=== PATIENT | male | born 1945 | race Caucasian/White ===

== ENCOUNTER 2021-04-19 19:28 | Emergency (ER) | payer MEDICARE, BC ==
[~2021-04-19] VITALS: Ht 180.3 cm; Wt 89.4 kg
[2021-04-19 19:28] VITALS: BP 143/87
--- NOTE | 2021-04-19 19:45 | NUR ---
URINE COLLECTED AND SENT TO LAB
[2021-04-19] MEDS ORDERED: TAMSULOSIN 0.4 MG CAP.SR.24H ONE (19:56)
[2021-04-19] MEDS ORDERED: TAMSULOSIN 0.4 MG CAP.SR.24H PO ONE (20:00)
[2021-04-19 20:03] LABS: BILIRUBIN,URINE Negative (NEGATIVE); COLOR,URINE YELLOW (YELLOW); LEUKOCYTE ESTERASE ,URINE Negative (NEGATIVE); NITRITE, URINE Negative (NEGATIVE); PH,URINE 6.5 (5.0-8.0); PROTEIN,URINE Negative (NEGATIVE); UGLUCOSE Negative (NEGATIVE); UROBILINOGEN,URINE 0.2 EU/dL (0.2)
[2021-04-19 20:05] LABS: BACTERIA,URINE Rare /HPF (None Seen); SQUAMOUS EPITHELIAL CELL,UR Few /HPF (None Seen); WBC,URINE NONE SEEN /HPF (0-3)
[2021-04-19] MEDS ORDERED: TAMS-12 PO (20:14)
--- NOTE | 2021-04-19 20:30 | NUR ---
SCANNED BLADDER, 0ML. ER AWARE. PT ABLE TO URINATE.
== END 2021-04-19 20:32 | disposition home or self-care (01) ==
LOC: ER 19:49
DX: N40.0 Benign prostatic hyperplasia without lower urinary tract symptoms (principal); I10 Essential (primary) hypertension
CPT/HCPCS: 81001